=== PATIENT | female | born 1995 | race Two or more races ===

== ENCOUNTER 2022-05-15 10:20 | Emergency (ER) | payer MEDICAID ==
[~2022-05-15] VITALS: Ht 160 cm; Wt 77.9 kg
[2022-05-15 11:54] LABS: Urine Bacteria NONE SEEN /hpf (None Seen); Urine Blood TRACE /uL (Negative); Urine Specific Gravity 1.021 (1.001-1.035); Urine WBC 1 /hpf (0 - 5)
[2022-05-15 12:09] VITALS: BP 130/74
[2022-05-15] MEDS ORDERED: SUMA50TA2 PO (12:47)
== END 2022-05-15 12:51 | disposition home or self-care (01) ==
LOC: ER 10:20
DX: G43.909 Migraine, unspecified, not intractable, without status migrainosus (principal)
CPT/HCPCS: 70450; 81001

== ENCOUNTER 2023-03-05 16:40 | Emergency (ER) | payer MEDICAID ==
[~2023-03-05] VITALS: Ht 160 cm; Wt 77.9 kg
[~2023-03-05 16:40] MED LIST: SUMA50TA2 PO
[2023-03-05 16:59] VITALS: BP 129/52; PULSE 82; RESP 16; TEMP 98; O2SAT 100
[2023-03-05] MEDS ORDERED: AMOX500T86 PO (17:09)
[2023-03-05] MEDS ORDERED: TETANUS-DIPTH-ACEL PERTUSSIS 0.5ML SYR Tdap IM ONE (17:15)
== END 2023-03-05 17:22 | disposition home or self-care (01) ==
LOC: ER 16:40
DX: S61.432A Puncture wound without foreign body of left hand, initial encounter (principal); S61.452A Open bite of left hand, initial encounter; Z79.2 Long term (current) use of antibiotics; Z79.899 Other long term (current) drug therapy; W54.0XXA Bitten by dog, initial encounter; Y93.89 Activity, other specified; Y92.89 Other specified places as the place of occurrence of the external cause; Y99.8 Other external cause status
CPT/HCPCS: 90471; 90715

== ENCOUNTER 2024-04-05 13:47 | Emergency (ER) | payer MEDICAID ==
[~2024-04-05] VITALS: Ht 157.5 cm; Wt 76.8 kg
[~2024-04-05 13:47] MED LIST changes: +AMOX500T86 PO
--- NOTE | 2024-04-05 14:08 | ED.PDOC ---
History of Present Illness HPI Comments 28 y/o F presents with c/o shortness of breath, today. Patient endorses on sensations of being unable to breathe, today. She reports having no significant past medical, surgical, or family Hx in addition to no recent relevant or pertinent Hx, such as recent strenuous activities or sick contact. She denies [place] ving any chest pain, cough, wheezing, fever, chills, or other associated symptoms or modifiers at this time. Time Seen by MD: 14:00 Reviewed Notes: Nurses Notes, Medications, Allergies Allergies: Coded Allergies: NO KNOWN ALLERGIES (Unverified , 05/15/22) Home Meds Active Scripts Amoxicillin & Pot Clavulanate (Augmentin) 500 Mg Tab, 1 TAB PO BID, #14 TAB Prov:EVELYNE THAKUR 03/05/23 Sumatriptan Succinate (Imitrex) 50 Mg Tab, 50 MG PO TID, #20 TAB Prov:EVELYNE THAKUR 05/15/22 Information Source: Patient Mode of Arrival: Ambulatory Severity: Moderate Timing: Hours Duration: Since onset Prehospital treatment: None Associated signs and symptoms Anxiety Past Medical History Past Medical History (Other): obesity Surgical History: Denies all surgeries 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 Family History Family History: Reviewed,noncontributory to illness Social History Smoker: Non-Smoker Alcohol: Occasionally Drugs: Denies Drug Use Lives In: Home Constitutional: denies: chills, diaphoresis, fatigue, fever, malaise, sweats, weakness, others EENTM: denies: blurred vision, double vision, ear bleeding, ear discharge, ear drainage, ear pain, ear ringing, eye pain, eye redness, hearing loss, mouth pain, mouth swelling, nasal discharge, nose bleeding, nose congestion, nose pain, photophobia, tearing, throat pain, throat swelling, voice changes, others Respiratory: reports: shortness of breath; denies: cough, hemoptysis, orthopnea, SOB at rest, SOB with excertion, stridor, wheezing, others Cardiovascular: denies: chest pain, dizzy spells, diaphoresis, Dyspnea on exertion, edema, irregular heart beat, left arm pain, lightheadedness, palpitations, PND, syncope, others Gastrointestinal: denies: abdomen distended, abdominal pain, blood streaked bowels, constipated, diarrhea, dysphagia, difficulty swallowing, hematemesis, melena, nausea, poor appetite, poor fluid intake, rectal bleeding, rectal pain, vomiting, others Genitourinary: denies: abnormal vagina bleeding, burning, dyspareunia, dysuria, flank pain, frequency, hematuria, incontinence, pain, , vagina discharge, urgency, others Neurological: denies: dizziness, fainting, headache, left sided numbness, left sided weakness, numbness, paresthesia, pre-existing deficit, right sided numbness, right sided weakness, seizure, speech problems, tingling, tremors, weakness, others Musculoskeletal: denies: back pain, gout, joint pain, joint swelling, muscle pain, muscle stiffness, neck pain, others Integumetry: denies: bruises, change in color, change in hair/nails, dryness, laceration, lesions, lumps, rash, wounds, others Allergic/Immunocompromised: denies: Difficulty Healing, Frequent Infections, Hives, Itching, others Hematologic/Lymphatic: denies: anemia, blood clots, easy bleeding, easy bruising, swollen glands, others Endocrine: denies: excessive hunger, excessive sweating, excessive thirst, excessive urination, flushing, intolerance to cold, intolerance to heat, unexplained weight gain, unexplained weight loss, others Psychiatric: denies: anxiety, bipolar disorder, depression, hopeless, panic disorder, schizophrenia, sleepless, suicidal, others All Other Systems: Reviewed and Negative Physical Exam General Appearance: No Apparent Distress, Obese HEENT: Normal ENT Inspection, Pharynx Normal, TMs Normal Neck: Full Range of Motion, Non-Tender, Normal, Normal Inspection Respiratory: Chest Non-Tender, Lungs Clear, No Accessory Muscle Use, No Respira tory Distress, Normal Breath Sounds Cardiovascular: No Edema, No JVD, No Murmur, No Gallop, Tachycardia Breast Exam: Deferred Gastrointestinal: No Organomegaly, Non Tender, No Pulsatile Mass, Normal Bowel Sounds, Soft Genitalia: Deferred Pelvic: Deferred Rectal: Deferred Extremities: No calf tenderness, Normal capillary refill, Normal inspection, Normal range of motion, Non-tender, No pedal edema Musculoskeletal : Apperance: Normal Neurologic: Alert, logistics coordinator II-XII nml as Tested, No Motor Deficits, Normal Affect, Normal Mood, No Sensory Deficits Cerebellar Function: Normal Reflexes: Normal Skin: Dry, Normal Color, Warm Lymphatic: No Adenopathy Was a procedure done? Was a procedure done?: No Differential Dx Considerations may include: URI, PNA, bronchitis, influenza, covid19 X-Ray, Labs, Meds, VS Vital Signs Date Time Temp Pulse Resp B/P (MAP) Pulse Ox O2 Delivery O2 Flow Rate FiO2 04/05/24 14:00 98.7 121 20 128/79 (95) 98 The chest x-ray is negative The patient will follow up with the primary care doctor The patient's heart rate has decreased at this time The patient will return to the emergency department's condition worsens The patient understands and agrees with the management. Images Reviewed?: Images reviewed and evaluated by me Time of 1ST Reevaluation: 15:06 Reevaluation 1ST: Improved Patient Education/Counseling: Diagnosis, Treatment, Prognosis, Need For Follow Up Family Education/Counseling: No Family Present Departure 1 Departure Time of Disposition: 15:06 Impression: Primary Impression: Dyspnea Qualified Codes: R06.00 - Dyspnea, unspecified Disposition: 01 HOME / SELF CARE / HOMELESS Condition: Fair Discharged With: Self Critical Care Note Critical Care Time?: No Stability Stability form required: No Heart Score Heart Score: Heart Score Response (Comments) Value History N/A 0 EKG N/A 0 Age N/A 0 Risk Factors N/A 0 Troponin N/A 0 Total 0 I personally scribed for TRISHA HARRISON MD ([email or web address]) on 04/05/24 at 14:08. Electronically submitted by Leobardo Bellamy ([email or web address]). TRISHA HARRISON MD Apr 05, 2024 14:08
--- NOTE | 2024-04-05 14:55 | DVH ---
CHEST RADIOGRAPH Indication: sob Technique: Frontal and lateral view of the chest was obtained Comparison: None FINDINGS: Lines and Tubes: None Lungs: Clear Pleura: No effusion. No pneumothorax. Cardiomediastinal contours: Unremarkable Bones: Unremarkable IMPRESSION: 1. No evidence of acute disease.
[2024-04-05 16:02] VITALS: BP 141/59; TEMP 99.1
[2024-04-05 16:08] VITALS: PULSE 102; RESP 16; O2SAT 100
== END 2024-04-05 16:12 | disposition home or self-care (01) ==
LOC: ER 13:47
DX: R06.02 Shortness of breath (principal)
CPT/HCPCS: 71046

== ENCOUNTER 2024-09-12 16:33 | Emergency (ER) | payer MEDICAID ==
[~2024-09-12] VITALS: Ht 157.5 cm; Wt 73.4 kg
[2024-09-12 16:49] VITALS: TEMP 98.6
--- NOTE | 2024-09-12 16:57 | ED.PDOC ---
History of Present Illness HPI Comments 28-year-old female presents with a chief complaint of vaginal bleeding, abdominal pain, while being currently . Patient states that her pain is localized to pelvic/suprapubic region, nonradiating, and describes as cramping sensation. Patient states that she is currently , but does not know how far along she is, . Patient states that her last menstrual cycle was 07/05/2024. Patient endorses that she was passing blood and mucus vaginally. Chief Complaint: Vaginal Bleed Time Seen by MD: 16:50 [facility] Reviewed Notes: Nurses Notes, Medications, Allergies Allergies: Coded Allergies: NO KNOWN ALLERGIES (Unverified , 05/15/22) Home Meds Active Scripts Nitrofurantoin Monohydrate Mac (Macrobid) 100 Mg Cap, 100 MG PO BID for 7 Days, #14 CAP Prov:TRISHA HARRISON MD 09/12/24 Amoxicillin & Pot Clavulanate (Augmentin) 500 Mg Tab, 1 TAB PO BID, #14 TAB Prov:EVELYNE THAKUR 03/05/23 Sumatriptan Succinate (Imitrex) 50 Mg Tab, 50 MG PO TID, #20 TAB Prov:EVELYNE THAKUR 05/15/22 Information Source: Patient Mode of Arrival: Ambulatory Severity: Moderate Timing: Hours Duration: Since onset Prehospital treatment: None Past Medical History PAST MEDICAL HISTORY: Denies Surgical History: Denies all surgeries 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 Family History Family History: Reviewed,noncontributory to illness Social History Smoker: Non-Smoker Alcohol: Occasionally Drugs: Denies Drug Use Lives In: Home Constitutional: denies: chills, diaphoresis, fatigue, fever, malaise, sweats, weakness, others EENTM: denies: blurred vision, double vision, ear bleeding, ear discharge, ear drainage, ear pain, ear ringing, eye pain, eye redness, hearing loss, mouth pain, mouth swelling, nasal discharge, nose bleeding, nose congestion, nose pain, photophobia, tearing, throat pain, throat swelling, voice changes, others Respiratory: denies: cough, hemoptysis, orthopnea, SOB at rest, shortness of breath, SOB with excertion, stridor, wheezing, others Cardiovascular: denies: chest pain, dizzy spells, diaphoresis, Dyspnea on exertion, edema, irregular heart beat, left arm pain, lightheadedness, palpitations, PND, syncope, others Gastrointestinal: reports: abdominal pain; denies: abdomen distended, blood streaked bowels, constipated, diarrhea, dysphagia, difficulty swallowing, hematemesis, melena, nausea, poor appetite, poor fluid intake, rectal bleeding, rectal pain, vomiting, others Genitourinary: reports: abnormal vagina bleeding, ; denies: burning, dyspareunia, dysuria, flank pain, frequency, hematuria, incontinence, pain, vagina discharge, urgency, others Neurological: denies: dizziness, fainting, headache, left sided numbness, left sided weakness, numbness, paresthesia, pre-existing deficit, right sided numbness, right sided weakness, seizure, speech problems, tingling, tremors, weakness, others Musculoskeletal: denies: back pain, gout, joint pain, joint swelling, muscle pain, muscle stiffness, neck pain, others Integumetry: denies: bruises, change in color, change in hair/nails, dryness, laceration, lesions, lumps, rash, wounds, others Allergic/Immunocompromised: denies: Difficulty Healing, Frequent Infections, Hives, Itching, others Hematologic/Lymphatic: denies: anemia, blood clots, easy bleeding, easy bruising, swollen glands, others Endocrine: denies: excessive hunger, excessive sweating, excessive thirst, excessive urination, flushing, intolerance to cold, intolerance to heat, unexplained weight gain, unexplained weight loss, others Psychiatric: denies: anxiety, bipolar disorder, depression, hopeless, panic disorder, schizophrenia, sleepless, suicidal, others All Other Systems: Reviewed and Negative Physical Exam General Appearance: No Apparent Distress HEENT: Normal ENT Inspection, Pharynx Normal, TMs Normal Neck: Full Range of Motion, Non-Tender, Normal, Normal Inspection Respiratory: Chest Non-Tender, Lungs Clear, No Accessory Muscle Use, No Respiratory Distress, Normal Breath Sounds Cardiovascular: No Edema, No JVD, No Murmur, No Gallop, Normal Peripheral Pulses, Regular Rate/Rhythm Breast Exam: Deferred Gastrointestinal: No Organomegaly, Non Tender, No Pulsatile Mass, Normal Bowel Sounds, Soft Genitalia: Deferred Pelvic: Deferred Rectal: Deferred Extremities: No calf tenderness, Normal capillary refill, Normal inspection, Normal range of motion, Non-tender, No pedal edema Musculoskeletal : Apperance: Normal Neurologic: Alert, [place]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 Was a procedure done?: No Differential Dx Considerations may include: Threatened , UTI X-Ray, Labs, Meds, VS Vital Signs Date Time Temp Pulse Resp B/P (MAP) Pulse Ox O2 Delivery O2 Flow Rate FiO2 09/12/24 16:49 98.6 113 16 129/72 (91) 97 98.6 Lab Test 09/12/24 17:32 09/12/24 16:43 Range/Units White Blood Count 7.9 4.4-10.8 10^3/uL Red Blood Count 4.65 4.0-5.20 10^6/uL Hemoglobin 13.7 12.2-16.2 g/dL Hematocrit 39.8 36.0-46.0 % Mean Corpuscular Volume 85.6 80.0-100.0 fL Mean Corpuscular Hemoglobin 29.5 28.0-32.0 pg Mean Corpuscular Hemoglobin Concent 34.5 32.0-36.0 g/dL Red Cell Distribution Width 13.2 11.8-14.3 % Platelet Count 264 140-450 10^3/uL Mean Platelet Volume 9.3 6.9-10.8 fL Neutrophils (%) (Auto) 57.5 37.0-80.0 % Lymphocytes (%) (Auto) 30.5 10.0-50.0 % Monocytes (%) (Auto) 10.2 0.0-12.0 % Eosinophils (%) (Auto) 1.1 0.0-7.0 % Basophils (%) (Auto) 0.7 0.0-2.0 % Neutrophils # (Auto) 4.5 1.6-8.6 10 ^3/uL Lymphocytes # (Auto) 2.4 0.4-5.4 10 ^3/uL Monocytes # (Auto) 0.8 0-1.3 10 ^3/uL Eosinophils # (Auto) 0.1 0-0.8 10 ^3/uL Basophils # (Auto) 0.1 0-0.2 10 ^3/uL Nucleated Red Blood Cells 0.0 % Beta HCG, Quantitative 5.3 H 1.5-4.2 mIU/mL Urine Color Red H Yellow Urine Clarity Ex.turbid Clear Urine pH 6.5 5.0-9.0 Urine Specific [place] 1.008 1.001-1.035 Urine Protein 2+ H Negative Urine Ketones Negative Negative Urine Blood 3+ H Negative /uL Urine Nitrite Negative Negative Urine Bilirubin Negative Negative Urine Urobilinogen Normal Negative mg/dL Urine Leukocyte Esterase 2+ Negative /uL Urine RBC 736 0 - 4 /hpf Urine Microscopic WBC 76 H 0-5 /HPF Urine Squamous Epithelial Cells Few <5 /hpf Urine Bacteria Few H None Seen /hpf Urine Glucose Normal Normal mg/dL The patient's urine test is positive for UTI The quantitative is 5.3 The CBC is within normal limits They ultrasound of the pelvis shows: IMPRESSION: No evidence of intrauterine at this time. Differential diagnosis continues to include early viable , failure/miscarriage as well as ectopic gestation. Recommend short-term interval follow-up as well as correlation with serial beta HCG testing. At this time, the patient has been discharge We told the base of the baby to have a follow up quantitative hCG and possible ultrasound because do not see a viable at this time. Images Reviewed?: Images reviewed and evaluated by me Time of 1ST Reevaluation: 17:20 Reevaluation 1ST: Improved Patient Education/Counseling: Diagnosis, Treatment, Prognosis, Need For Follow Up Family Education/Counseling: No Family Present Departure 1 Departure Time of Disposition: 20:21 Impression: Primary Impression: Threatened Additional Impression: UTI (urinary tract infection) Qualified Codes: N30.00 - Acute cystitis without hematuria Disposition: 01 HOME / SELF CARE / HOMELESS Condition: Fair e-Prescriptions Nitrofurantoin Monohydrate Mac (Macrobid) 100 Mg Cap 100 MG PO BID for 7 Days, #14 CAP Prov: TRISHA HARRISON MD 09/12/24 Discharged With: Self Critical Care Note Critical Care Time?: No Stability Stability form required: No Heart Score Heart Score: Heart Score Response (Comments) Value History N/A 0 EKG N/A 0 Age N/A 0 Risk Factors N/A 0 Troponin N/A 0 Total 0 I personally scribed for TRISHA HARRISON MD ([email or web address]) on 09/12/24 at 16:57. Electronically submitted by Paul Brandon ([email or web address]). TRISHA HARRISON MD Sep 12, 2024 16:57
[2024-09-12 17:50] LABS: Basophils # (auto) 0.1 10 ^3/uL (0-0.2); Basophils % (auto) 0.7 % (0.0-2.0); Eosinophils # (auto) 0.1 10 ^3/uL (0-0.8); Eosinophils % (auto) 1.1 % (0.0-7.0); Hematocrit 39.8 % (36.0-46.0); Hemoglobin 13.7 g/dL (12.2-16.2); Lymphocytes # (auto) 2.4 10 ^3/uL (0.4-5.4); Lymphocytes % (auto) 30.5 % (10.0-50.0); Mean Corpuscular Hemoglobin 29.5 pg (28.0-32.0); Mean Corpuscular Hgb Conc. 34.5 g/dL (32.0-36.0); Mean Corpuscular Volume 85.6 fL (80.0-100.0); Monocytes # (auto) 0.8 10 ^3/uL (0-1.3); Monocytes % (auto) 10.2 % (0.0-12.0); Neutrophils # (auto) 4.5 10 ^3/uL (1.6-8.6); Neutrophils % (auto) 57.5 % (37.0-80.0); Platelet Count (auto) 264 10^3/uL (140-450); Red Blood Cells 4.65 10^6/uL (4.0-5.20); Red Cell Distribution Width 13.2 % (11.8-14.3); White Blood Cell 7.9 10^3/uL (4.4-10.8)
[2024-09-12 19:21] LABS: Urine Bacteria FEW /hpf (None Seen); Urine Blood 3+ /uL (Negative); Urine Clarity Ex.Turbid (Clear); Urine Color Red (Yellow); Urine Protein, UAD 2+ (Negative); Urine Specific Gravity 1.008 (1.001-1.035); Urine Squamous Epithelial Cell FEW /hpf (<5); Urine Urobilinogen Normal (Negative); Urine WBC 76 /HPF (0-5); Urine pH 6.5 (5.0-9.0)
--- NOTE | 2024-09-12 20:02 | DVH ---
OB EVALUATION, LESS THAN 14 WEEKS CLINICAL HISTORY: pain COMPARISON: None TECHNIQUE: Real-time grayscale, color flow and M-mode imaging of the uterus is performed. Transabdomi nal and transvaginal technique. FINDINGS: The uterus measures approximately 6.9 x 4.5 x 3.6 cm. Mildly thickened endometrium to approximately 7 mm. No intrauterine gestational sac or pole identified at this time. Multiple presumed cervical nabothian cysts noted. Right ovary measures approximately 1.9 x 2.1 x 1.6 cm. Left ovary measures approximately 2.1 x 0.9 x 2.1 cm. Both ovaries demonstrate dopplerable blood flow on spectral analysis. Both ovaries also demon strate multiple subcentimeter cysts/follicles. Small amount of free fluid identified in the cul-de-sac. IMPRESSION: No evidence of intrauterine at this time. Differential diagnosis continues to include christian y viable , failure/miscarriage as well as ectopic gestation. Recommend short-term interval follow-up as well as correlation with serial beta HCG testing.
[2024-09-12] MEDS ORDERED: NITR-87 PO (20:19)
[2024-09-12 20:39] VITALS: BP 134/94; PULSE 84; RESP 18; O2SAT 98
== END 2024-09-12 20:40 | disposition home or self-care (01) ==
LOC: ER 16:33
DX: O20.0 Threatened abortion (principal); O23.41 Unspecified infection of urinary tract in pregnancy, first trimester; Z79.899 Other long term (current) drug therapy; Z3A.00 Weeks of gestation of pregnancy not specified
CPT/HCPCS: 36415; 76801; 76817; 81001; 84702; 85025